=== PATIENT | female | born 1995 | race African-American/Black ===

== ENCOUNTER 2016-12-12 22:49 | Emergency (ER) | payer MEDICAID, OTHER ==
[~2016-12-12 22:49] MED LIST: PREN29TA PO
[2016-12-12 22:50] VITALS: BP 141/91; PULSE 80; RESP 16; TEMP 98.7; O2SAT 98
[2016-12-13 01:30] VITALS: BP 128/83; PULSE 80; RESP 16; O2SAT 99
--- NOTE | 2016-12-13 01:44 | PD ---
HPI Chief Complaint: Pain: Acute or Chronic Time Seen by Provider: 01:41 Travel History International Travel<30 days: No Contact w/Intl Traveler<30days: No Traveled to known affect area: No History of Present Illness HPI Patient comes in complaining of flank pain in her left Achilles tendon ongoing for 2 months. Patient states she thinks she may have fell 2 months ago, but is uncertain denies any other known trauma. Denies any numbness or tingling. Pain is worse with walking. Patient denies doing anything for it. Pain improves with rest. There is no radiation of the pain. Denies any numbness or tingling, , or breast-feeding PFSH Past Medical History Asthma: Yes Diminished Hearing: No Neurologic: Yes (MENINGITIS A BABY) Immunizations Current: No Tetanus Vaccination: Unknown Influenza Vaccination: No ?: Not Menopausal: No : 1 Para: 2 Past Surgical History Surgical History: No Previous Surgery Social History Alcohol Use: No Tobacco Use: No Substance Use: No Allergies-Medications (Allergen,Severity, Reaction): Coded Allergies: No Known Allergies (Unverified , 12/13/16) Reported Meds & Prescriptions Reported Meds & Active Scripts Active No Active Prescriptions or Reported Medications Review of Systems Except as stated in HPI: all other systems reviewed are Neg Physical Exam Narrative GENERAL: Well-developed, well nourished, in no acute distress, and non-ill appearing. SKIN: Focused skin assessment warm and dry. HEAD: Atraumatic. Normocephalic. EYES: Pupils equal and round. EOMI. No scleral icterus. No injection or drainage. ENT: No nasal bleeding or discharge. Mucous membranes pink and moist. NECK: Trachea midline. Supple. No nuclear rigidity. CARDIOVASCULAR: Dorsal pulses 2+, intact, and equal bilaterally. Capillary refill less than 2 seconds. RESPIRATORY: No accessory muscle use. No respiratory distress. MUSCULOSKELETAL: No obvious deformities. No clubbing. No cyanosis. No edema. Full range of motion. Ankle: Neagative anterior draw and Haynes test. Negative Ector's sign. No laxity noted with passive inversion and eversion of BL ankles. Negative squeeze test. Pulses equal BL distal to injury. Capillary refill less than 2 seconds distal to injury and equal BL. Sensation equal BL 1st web space. FROM of toes distal to injury and equal BL. NV intact distal to injury and equal BL. Dorsal pulses equal BL. No reproducible pain on exam. NEUROLOGICAL: Awake and alert. No obvious cranial nerve deficits. Motor grossly within normal limits. Normal speech. PSYCHIATRIC: Appropriate mood and affect; insight and judgment normal. Data Data Last Documented VS Vital Signs Date Time Temp Pulse Resp B/P Pulse Ox O2 Delivery O2 Flow Rate FiO2 12/13/16 01:30 80 16 128/83 99 Room Air 12/12/16 22:50 98.7 Orders Splint Or Brace Apply/Monitor (12/13/16 01:40) MDM Medical Decision Making Medical Screen Exam Complete: Yes Emergency Medical Condition: Yes Differential Diagnosis Fracture, strain, contusion, tendinitis, other Narrative Course There is no clinical evidence for fracture. There is no clinical evidence to suspect bony injury by exam. No obvious ligamental injury or internal derangement is noted at this time. The distal extremity appears neurovascularly intact, without evidence of neurovascular injury nor compartment syndrome. Tendon exam also was intact. The patient was discharged tendinitis care instructions and given warnings for vascular compromise. The patient is to follow up with primary care doctor or vending machine host/hostess. The patient agrees with plan. Patient in no obvious distress upon re-evaluation. Any questions/concerns in reference to patient diagnosis/condition discussed and clarified prior to patient's discharge. Reinforced sheer importance of close follow up with patient 's primary physician or primary care clinic. Instructed patient to return to ED immediately, if symptoms return/worsen. Pt showed understanding of above instructions. Further instructions and recommendations were detailed in discharge paperwork. Pt ambulated without difficulty out of ED at discharge. Diagnosis Primary Impression: Achilles tendinitis of left lower extremity Referrals: [facility] Patient Instructions: Achilles Tendinitis (ED), General Instructions Additional Instructions: Follow-up with your primary care physician and/or vending machine host/hostess 3-4 days for reevaluation. Use [id number] Tylenol and/or ibuprofen as needed for pain. Follow instructions on the packaging. Apply ice to affected area 20 minutes to affected area as needed for pain. Wear Adam wrap as needed for comfort. Return to the emergency department if symptoms get worse. Scripts No Active Prescriptions or Reported Meds Disposition: DISCHARGE HOME Condition: Stable Billy Smith Dec 13, 2016 01:43
== END 2016-12-13 01:56 | disposition home or self-care (01) ==
LOC: NEPD 22:49
DX: M76.62 Achilles tendinitis, left leg (principal); Z87.09 Personal history of other diseases of the respiratory system
CPT/HCPCS: 99282